=== PATIENT | male | born 1955 | race Caucasian/White ===

== ENCOUNTER → 2017-07-02 | Outpatient (CLI) | payer OTHER | LOC: M.RAD 11:13 | DX: R05 Cough (principal) ==

== ENCOUNTER → 2017-09-29 | Outpatient (CLI) | payer OTHER | LOC: M.ULTRA 10:30 | DX: N43.3 Hydrocele, unspecified (principal) ==

== ENCOUNTER → 2018-06-02 | Outpatient (CLI) | payer OTHER ==
[2018-06-02 07:14] LABS: CREATININE 1.3 mg/dL (0.6-1.3)
== END ==
LOC: M.LAB 06:49 → M.CT 08:00
PROVIDERS: Registered Nurse Diabetes Educator
DX: N20.0 Calculus of kidney (principal); J90 Pleural effusion, not elsewhere classified; I71.4 Abdominal aortic aneurysm, without rupture; Z90.49 Acquired absence of other specified parts of digestive tract

== ENCOUNTER → 2018-06-08 | Outpatient (CLI) | payer OTHER | LOC: M.CT 17:00 | DX: I77.810 Thoracic aortic ectasia (principal); J90 Pleural effusion, not elsewhere classified; J98.11 Atelectasis; I25.10 Atherosclerotic heart disease of native coronary artery without angina pectoris; Z95.1 Presence of aortocoronary bypass graft ==